=== PATIENT | male | born 1960 | race Caucasian/White ===

== ENCOUNTER 2018-12-23 10:23 | Outpatient (CLI) | payer MEDICARE ==
[~2018-12-23] VITALS: Ht 177.8 cm; Wt 105.9 kg
[2018-12-23 11:27] LABS: APTT 31.1 SECONDS (22.8-39.4); INR 1.37 (0.85-1.17); PROTIME 16.3 SECONDS (11.6-15.0)
[2018-12-23 11:34] LABS: ALBUMIN 3.2 g/dL (3.4-5.0); ALKALINE PHOSPHATASE 63 U/L (46-116); ALT (SGPT) 28 U/L (10-68); BILIRUBIN - TOTAL 1.11 mg/dL (0.2-1.3); CALC OSMOLALITY 292 mosm/kg (275-300); CALCIUM 8.9 mg/dL (8.5-10.1); CARBON DIOXIDE 30.3 mmol/L (21.0-32.0); CHLORIDE - SERUM 103 mmol/L (98-107); CREATININE - SERUM 0.9 mg/dL (0.6-1.3); GLUCOSE 239 mg/dL (74-106); POTASSIUM - SERUM 4.3 mmol/L (3.5-5.1); PROTEIN - SERUM 7.2 g/dL (6.4-8.2); SODIUM 142 mmol/L (136-145); UREA NITROGEN 17 mg/dL (7-18); eGFR NON AFRICAN AMERICAN > 90 mL/min (90-120)
[2018-12-23 11:40] LABS: BASOPHILS 0.3 % (0-2); EOSINOPHILS 0.9 % (0-7); HEMATOCRIT 44.5 % (42.0-54.0); HEMOGLOBIN 14.6 g/dL (13.5-17.5); IMMATURE GRANULOCYTES 0.3 % (0-5); LYMPHOCYTES 18.3 % (15-50); MCH 28.5 pg (26.0-34.0); MCHC 32.8 g/dL (31.0-37.0); MCV 86.9 fL (80.0-100.0); MEAN PLATELET VOLUME 9.2 fL (7.4-10.4); MONOCYTES 7.5 % (2-11); NEUTROPHILS 72.7 % (40-80); PLATELET COUNT 239 10x3/uL (130-400); RBC 5.12 10x6/uL (4.20-6.10); WBC 9.7 10x3/uL (4.8-10.8)
[2018-12-23] MEDS ORDERED: GLUCOPHAGE1000 MG PO (11:40)
[2018-12-23] MEDS ORDERED: LANTUS INSULIN10 ML (11:41)
[2018-12-23] MEDS ORDERED: BAYER CHEWABLE81 MG PO (11:42)
[2018-12-23] MEDS ORDERED: LASIX20 MG (11:43)
[2018-12-23 11:52] VITALS: BP 126/89; Ht 177.8 cm; Wt 105.9 kg
--- NOTE | 2018-12-23 13:44 | NUR ---
IV REMOVED AND PT EATING A BURGER AND DIET COKE.PT HAS O2 ON BUT TAKN EMPTY. NO SOB
--- NOTE | 2018-12-23 14:37 | NUR ---
PT HAS NO RIDE HOME, RECIEVED ADA DIET AND EATING WELL
--- NOTE | 2018-12-23 15:16 | NUR ---
UPON RETURNING FROM ESCORTING OTHER PT DOWNSTAIRS. PT FOUND DOWN[facility]IRS [facility]. INSTRUCTED PT RETURN TO UNIT TO RECEIVE DC INSTRUCTIONS. PT REFUSING TO COME BACK UPSTAIRS, STATES THAT HE HAS RIDE ON HIS WAY, AND THTA HE WOULD LIKE TO WAIT DOWNSTAIRS. DC INSTRUCTIONS GIVEN DOWNSTAIRS AND PT VERBALIZED UNDERSTANDING. IV REMOVED PRIOR TO PT LEAVING UNIT, INTACT, NO REDNESS AT SITE.
== END 2018-12-23 14:35 | disposition home or self-care (01) ==
LOC: D.SP 10:23 → D.CT 11:00 → D.SP 13:00 → D.CT 12-27 13:00
PROVIDERS: ATTEND Specialist
DX: R18.8 Other ascites (principal); I50.9 Heart failure, unspecified; K80.20 Calculus of gallbladder without cholecystitis without obstruction; Z01.812 Encounter for preprocedural laboratory examination